=== PATIENT | female | born 1965 | race Caucasian/White ===

== ENCOUNTER 2022-08-12 11:30 | Emergency (ER) | payer OTHER, SELFPAY ==
[2022-08-12 11:41] VITALS: BP 120/86; PULSE 85; RESP 16; TEMP 36.1; O2SAT 98
--- NOTE | 2022-08-12 12:16 | ED.GENADULT ---
HPI - General Adult General Chief complaint: Wound/Laceration Stated complaint: Right Arm Injury/Skin Tear Source: patient Mode of arrival: ambulatory Limitations: no limitations History of Present Illness HPI narrative: Patient presents for evaluation of skin tears to her right forearm. She indicates she was walking her dog last night and the leash pulled against the skin of her forearm, causing two skin tears in the process. She states she has very thin skin tear forearms and has seen several medical providers regarding her concern of that. She takes supplemental collagen. Denies any bleeding from the site at the current time. No fever, chills, nausea, vomiting, purulence from the affected area. She is not diabetic. Date of last tetanus unknown. Related Data Home Medications Medication Instructions Recorded Confirmed azelastine 137 mcg (0.1 %) nasal 1 spray intranasal BID 08/12/22 08/12/22 spray aerosol buspirone 10 mg tablet 10 mg PO BID 08/12/22 08/12/22 fluticasone propionate 230 2 puff inhalation DAILY 08/12/22 08/12/22 mcg-salmeterol 21 mcg/actuation HFA inhaler (Advair HFA) fluticasone propionate 50 1 spray intranasal DAILY 08/12/22 08/12/22 mcg/actuation nasal spray,suspension levothyroxine 100 mcg tablet 100 mcg PO DAILY 08/12/22 08/12/22 lisinopril 20 1 tablet PO DAILY 08/12/22 08/12/22 mg-hydrochlorothiazide 12.5 mg tablet montelukast 10 mg tablet 10 mg PO DAILY 08/12/22 08/12/22 potassium chloride 20 mEq 20 meq PO DAILY 08/12/22 08/12/22 tablet,extended release(part/cryst) (Klor-Con M) semaglutide 14 mg tablet (Rybelsus) 14 mg PO DAILY 08/12/22 08/12/22 tiotropium bromide 2.5 2 inh inhalation DAILY 08/12/22 08/12/22 mcg/actuation mist for inhalation (Spiriva Respimat) Allergies Allergy/AdvReac Type Severity Reaction Status Date / Time Penicillins Allergy Unknown Rash Verified 08/12/22 12:01 Review of Systems Review of Systems: CONSTITUTIONAL: Denies fever, chills, or sweats. EYES: Denies visual changes, redness, or discharge. ENT: Denies rhinorrhea, congestion, sore throat, or otalgia. CARDIOVASCULAR: Denies chest pain, palpitations, or edema. RESPIRATORY: Denies cough or dyspnea. GASTROINTESTINAL: Denies abdominal pain, nausea, vomiting, or diarrhea. GENITOURINARY: Denies dysuria or hematuria. SKIN: Reports 2 skin tears to the right forearm with associated bruising MUSCULOSKELETAL: Denies back pain, joint pain, or myalgia. NEUROLOGIC: Denies headache, numbness, dizziness, or weakness. PSYCHIATRIC: Denies anxiety or depression. [facility] Past Medical History Medical History No pertinent past medical history Surgical History Surgical History No pertinent past surgical history Family History Family History (Updated 08/12/22 @ 12:21 by Be Zuniga [facility], ) Father No pertinent past medical history Social History Social History (Updated 08/12/22 @ 12:22 by Be Zuniga, [facility], ) Smoking status: Never smoker Substance use: never Gender identity (if verbalized by the patient): Female Sexual Orientation (if Verbalized by the Patient): Straight or Heterosexual Spiritual care concerns: No Exam Narrative: GENERAL: Well-appearing, well-nourished, and in no acute distress. HEAD: Normocephalic, atraumatic. EYES: PERRLA and EOMI. ENT: Nares clear, no rhinorrhea or epistaxis. Mucous membranes moist. Oropharynx without tonsillar hypertrophy exudate or other lesions. Bilateral TMs pearly blanton nonbulging NECK: Supple. No adenopathy or masses. No carotid bruits or JVD CHEST: Clear to auscultation. No respiratory distress. No wheezes rales or rhonchi HEART: Regular rate and rhythm. No murmur heard. Normal peripheral pulses. ABDOMEN: Soft, nontender, nondistended, normal active bowel sounds. EXTREMITIES: Normal range of m
== END 2022-08-12 12:15 | disposition home or self-care (01) ==
PROVIDERS: Emergency Provider Nurse Practitioner
DX: S51.811A Laceration without foreign body of right forearm, initial encounter (principal); W22.8XXA Striking against or struck by other objects, initial encounter; Y93.K1 Activity, walking an animal
CPT/HCPCS: 99213; G0463